=== PATIENT | male | born 1965 | race Caucasian/White ===

== ENCOUNTER 2017-10-31 11:44 | Emergency (ER) | payer OTHER ==
[~2017-10-31] VITALS: Ht 172.7 cm; Wt 68.5 kg
[~2017-10-31 11:44] MED LIST: AUGMENTIN875 MG PO; CYCLOBENZAPRINE10 MG PO; DOCUSATE SODIU100 MG PO; ESCITALOPRAM OX20 MG PO; FLORASTOR250 MG PO; OXYCODONE HCL10 MG PO; PANTOPRAZOLE SO40 MG PO
[2017-10-31] MEDS ORDERED: LIDODERM 5% P1 PATCH TD (13:35)
[2017-10-31] MEDS ORDERED: MOTRIN800 MG PO (13:36)
[2017-10-31 13:50] VITALS: BP 142/104
== END 2017-10-31 13:50 | disposition home or self-care (01) ==
LOC: EME 11:44
DX: G89.29 Other chronic pain (principal); M54.5 Low back pain; M79.604 Pain in right leg; Z79.891 Long term (current) use of opiate analgesic; Z76.0 Encounter for issue of repeat prescription; F17.200 Nicotine dependence, unspecified, uncomplicated
CPT/HCPCS: 99281; 99283